=== PATIENT | male | born 1965 ===

== ENCOUNTER 2020-12-30 15:46 | Observation (INO) | payer BC, SELFPAY ==
[2020-12-30] VITALS (42 sets, daily range): BP systolic 123–138; BP diastolic 70–85; PULSE 55–67; RESP 16–18; TEMP 36.7–36.8; O2SAT 91–99
--- NOTE | 2020-12-30 | DI.CT_ITS ---
Exam(s) CT ABDOMEN PELVIS W EXAM: CT ABDOMEN PELVIS W CLINICAL HISTORY: abd pain. TECHNIQUE: Imaging Protocol: Axial computed tomography images with coronal and sagittal reformatted images were created and reviewed CONTRAST MATERIAL: Intravenous: Omnipaque 100cc Oral: None COMPARISON: No exams were available for comparison FINDINGS: VISUALIZED LUNG BASES: No nodules nor pleural effusions evident. ABDOMEN: There is no ascites. LIVER: There are no focal hepatic lesions evident. No dilated intrahepatic ducts. GALLBLADDER/BILIARY: No obvious gallbladder pathology. CBD is not dilated. PANCREAS: No evidence of pancreatic mass nor dilatation of the pancreatic duct. SPLEEN: Spleen is not enlarged. No obvious intrasplenic lesions. Splenic and portal veins are paten t. ADRENALS: There are no significant adrenal masses. KIDNEYS:There is an exophytic benign 2 cm diameter cyst off the lateral cortex of the left kidney. N o other focal renal findings. No hydronephrosis . ABDOMINAL AORTA: Abdominal aorta is not enlarged. LYMPH NODES:There is no retroperitineal nor paraaortic adenopathy. ABDOMINAL WALL: No evidence of significant anterior abdominal wall hernia. PELVIS: GI: No evidence of appendicitis.There diverticuli in left side of the colon. There is evidence of ac efrem diverticulitis in the lower descending colon-upper sigmoid. There is surrounding streaking but n o evidence of abscess at this time. LYMPH NODES: There is no intrapelvic nor inguinal adenopathy. REPRODUCTIVE: Prostate gland size normal. URINARY BLADDER: No calculi nor obvious masses evident OSSEOUS: No significant osseous lesions. Chronic degenerative disc disease at L4-5 and L5-S1 levels IMPRESSION: 1. The main finding here is diverticulitis in the descending-left colon and upper sigmoid. There is no evidence of free air and no evidence of abscess. 2. Benign 2 cm cyst left kidney. No other focal renal findings. RADIATION DOSE DELIVERED: 1,036.39mGy.cm Total DLP DATA REPOSITORY: All CT scans at this facility are submitted to the National Radiology Data Registry (NRDR) Dose Index Registry (DIR) with the [employer] (ACR). RADIATION OPTIMIZATION: All CT scans at this facility use at least one of these dose optimization te chniques: automated exposure control; mA and/or kV adjustment per patient size (includes targeted exa ms where dose is matched to clinical indication); or iterative reconstruction.
[2020-12-30] MEDS: Normal Saline 1,000 ML 1000 ML IV (16:09)
[2020-12-30] MEDS: Normal Saline Flush 10 ML SYR IVP ×2 (16:10→18:47)
[2020-12-30 16:32] LABS: ALT 77 U/L (16-63); AST 42 U/L (15-37); Abs Immature Grans 0.01 10^3/uL (0.0-0.06); Absolute Basophil Count 0.03 10^3/uL (0.0-0.2); Absolute Eosinophil Count 0.18 10^3/uL (0.0-0.7); Absolute Lymphocyte Count 1.31 10^3/uL (1.2-3.4); Absolute Monocyte Count 0.58 10^3/uL (0.1-0.8); Absolute Neutrophil Count 3.78 10^3/uL (1.2-6.7); Albumin 3.8 g/dL (3.4-5.0); Alkaline Phosphatase 55 U/L (46-116); Anion Gap 9.1 mmol/L (3-11); BUN 13 mg/dL (7-18); Basophils % 0.5; Bilirubin, Total 0.3 mg/dL (0.2-1.0); CO2 24.9 mmol/L (21.0-32.0); CREATININE 0.9 mg/dL (0.70-1.30); Chloride 106 mmol/L (98-107); Eosinophils % 3.1; Glucose 96 mg/dL (74-106); HCT 43.6 % (40.0-50.0); HGB 14.8 g/dL (13.5-17.5); Immature Grans % 0.2; Lymphocytes % 22.2; MCH 30.6 pg (27.0-33.0); MCHC 33.9 % (32.0-36.0); MCV 90.1 fL (80-95); MPV 10.2 fL (8.0-11.0); Monocytes % 9.8; Neutrophils % 64.2; Nucleated RBC 0 %; Platelet Count 299 10^3/uL (130-400); Potassium 4.4 mmol/L (3.5-5.1); RBC 4.84 10^6/uL (4.36-5.78); RDW 12.3 % (11.8-14.1); RDW-SD 40.8 fL; Sodium 140 mmol/L (136-145); Total Protein 7.2 g/dL (6.4-8.2); WBC 5.89 10^3/uL (4.4-10.8)
[2020-12-30 16:35] LABS: Lipase 148 U/L (73-393)
[2020-12-30] MEDS: Ondansetron 4 MG/2 ML VIAL IVP (16:49)
[2020-12-30 16:55] LABS: Bilirubin Negative (Negative); Blood Negative (Negative); Clarity Clear (Clear); Glucose Negative (Negative); Ketones Negative (Negative); Leukocyte Esterase Trace (Negative); Nitrite Negative (Negative); Specific Gravity >= 1.030 (1.005-1.025); Urobilinogen 0.2 EU/dL (Up TO 0.2)
[2020-12-30 17:01] LABS: Bacteria Negative HPF (Negative); C & S Indicated? Yes; Casts Negative LPF (Negative); Crystals Negative HPF (Negative); Epithelial Cells Negative HPF (Negative); Mucus Negative (Negative); Other Cells Negative (Negative); RBC Negative HPF (0-2); WBC Negative HPF (0-5)
--- NOTE | 2020-12-30 18:02 | NUR.NOTE ---
Resting quietly on cart. Awaiting CT scan. Warm blanket provided. Lights dimmed for comfort. Call light in reach. Nursing Note:
--- NOTE | 2020-12-30 18:38 | NUR.NOTE ---
Returns from radiology; gait steady. Voids without difficulty. Call light in reach.Nursing Note:
[2020-12-30] MEDS: Omnipaque 350 MG/ML 100 ML BTL IV (18:46)
--- NOTE | 2020-12-30 18:51 | DI.VRAD_ITS ---
PROCEDURE INFORMATION: Exam: CT Abdomen And Pelvis With Contrast Exam date and time: 12/30/2020 4:02 PM Age: 55 years old Clinical indication: Abdominal pain TECHNIQUE: Imaging protocol: Computed tomography of the abdomen and pelvis with contrast. Radiation optimization: All CT scans at this facility use at least one of these dose optimization techniques: automated exposure control; mA and/or kV adjustment per patient size (includes targeted exams where dose is matched to clinical indication); or iterative reconstruction. Contrast material: OMNIPAQUE 350; Contrast volume: 100 ml; Contrast route: INTRAVENOUS (IV); COMPARISON: No relevant prior studies available. FINDINGS: Lungs: No acute infiltrate in either lung base. Bibasilar areas of linear parenchymal scarring or subsegmental collapse / atelectasis. Liver: Normal. No mass. Gallbladder and bile ducts: Normal. No calcified stones. No ductal dilation. Pancreas: Normal. No ductal dilation. Spleen: Normal. No splenomegaly. Adrenal glands: Normal. No mass. Kidneys and ureters: Posterolateral left renal cortical cyst. A few hypodensities within the renal cortex bilaterally which are too small to definitively characterize. No hydronephrosis or perinephric fluid. Stomach and bowel: Mural thickening of the mid and lower colon with associated scattered diverticula and mild infiltration / stranding of the pericolonic fat (coronal images 36-46 consistent with acute diverticulitis. No associated abscess or perforation. Appendix: Normal appendix. Intraperitoneal space: No intraperitoneal free air. Trace free fluid in the left paracolic gutter. No intraperitoneal free air. Vasculature: Unremarkable. No abdominal aortic aneurysm. Lymph nodes: Unremarkable. No enlarged lymph nodes. Urinary bladder: Unremarkable as visualized. Reproductive: Unremarkable as visualized. Bones/joints: Unremarkable. No acute fracture. Soft tissues: Unremarkable. IMPRESSION: Acute diverticulitis of the mid and lower descending colon. No associated abscess or perforation. Dictated and Authenticated by: Carlos Nolan MD. Ordering:ARLENE Grove MD
--- NOTE | 2020-12-30 20:24 | DI.CT_ITS ---
Exam(s) CT ABDOMEN PELVIS WO EXAM: CT ABDOMEN PELVIS WO CLINICAL HISTORY: abd pain. TECHNIQUE: Imaging Protocol: Axial computed tomography images with coronal and sagittal reformatted images were created and reviewed CONTRAST MATERIAL: Intravenous: none Oral: Yes COMPARISON: CT CT ABDOMEN PELVIS W from 12/30/2020 FINDINGS: The study appears to been repeated with oral contrast administration. VISUALIZED LUNG BASES: No nodules nor pleural effusions evident. ABDOMEN: There is no ascites. LIVER: There are no obvious focal hepatic lesions evident of this noninfused study. GALLBLADDER/BILIARY: No obvious gallbladder pathology. CBD is not dilated. PANCREAS: No evidence of pancreatic mass nor dilatation of the pancreatic duct. SPLEEN: Spleen is not enlarged. No obvious intrasplenic lesions. ADRENALS: There are no significant adrenal masses. KIDNEYS:2 cm exophytic cyst seen off the lateral cortex of the left kidney again noted. No solid mario al masses. No calculi nor hydronephrosis. . ABDOMINAL AORTA: Abdominal aorta is not enlarged. LYMPH NODES: There is no retroperitoneal nor paraaortic adenopathy. ABDOMINAL WALL: No evidence of significant anterior abdominal wall hernia. GI: Diverticulitis of the descending-left colon and upper sigmoid again noted, unchanged. No abscess at this time. PELVIS: LYMPH NODES: There is no intrapelvic nor inguinal adenopathy. GI: No evidence of appendicitis.Diverticulitis as described above. URINARY BLADDER: Presently filled with contrast from prior contrast infused CT scan REPRODUCTIVE: Prostate not enlarged. OSSEOUS: No significant osseous lesions. IMPRESSION: 1. Diverticulitis of the descending-left and contiguous upper sigmoid colon. No abscess evident at t his time. 2. Benign 2 cm cyst exophytic off the lateral cortex left kidney. 3. No air-gas in the urinary bladder and no evidence of abscess in the liver. RADIATION DOSE DELIVERED: 1,175.11mGy.cm Total DLP DATA REPOSITORY: All CT scans at this facility are submitted to the National Radiology Data Registry (NRDR) Dose Index Registry (DIR) with the [employer] (ACR). RADIATION OPTIMIZATION: All CT scans at this facility use at least one of these dose optimization te chniques: automated exposure control; mA and/or kV adjustment per patient size (includes targeted exa ms where dose is matched to clinical indication); or iterative reconstruction.
--- NOTE | 2020-12-30 20:55 | W.ED.GENAD ---
Discharge Plan Disposition Patient Disposition: [facility] INPATIENT Condition: Stable Discharge Details Chief Complaint: Abd Prob Clinical Impression: Diverticulitis Primary Care Provider: MarixaLocal ED Provider: Maine Gonzalez Home Meds and New Rx's Prescriptions: No Action metronidazole 500 mg Tablet 500 mg PO TID RF: 0 ciprofloxacin HCl [Cipro] 500 mg Tablet 500 mg PO BID RF: 0 allopurinol 100 mg Tablet 200 mg PO DAILY RF: 0 Medical Decision Making complete 8 days of cipro/flagyl for presumptive diverticulitis. will check labs and ct scan IV established, 1 liter of NS and zofran 4 mg IVP with some improvement in nausea CT results discussed with Dr Iyer who recommends oral contrast ct abd/pelvis Medical Records Medical records reviewed: Yes I reviewed the patient's medical records. Imaging Data Radiologic Study: Imaging: CT Scan (abd/pelvis IV contrast only) Radiologist's impression: Patient Name: Suma Gutierrez #: [id number]: ER Ordering Provider: : REG ER Primary Care Provider: Quinton CalvinDate of Exam: 12/30/20Sex: M : 1965Age: 55 Exam(s) PROCEDURE INFORMATION: Exam: CT Abdomen And Pelvis With Contrast Exam date and time: 12/30/2020 4:02 PM Age: 55 years old Clinical indication: Abdominal pain TECHNIQUE: Imaging protocol: Computed tomography of the abdomen and pelvis with contrast. Radiation optimization: All CT scans at this facility use at least one of these dose optimization techniques: automated exposure control; mA and/or kV adjustment per patient size (includes targeted exams where dose is matched to clinical indication); or iterative reconstruction. Contrast material: OMNIPAQUE 350; Contrast volume: 100 ml; Contrast route: INTRAVENOUS (IV); COMPARISON: No relevant prior studies available. FINDINGS: Lungs: No acute infiltrate in either lung base. Bibasilar areas of linear parenchymal scarring or subsegmental collapse / atelectasis. Liver: Normal. No mass. Gallbladder and bile ducts: Normal. No calcified stones. No ductal dilation. Pancreas: Normal. No ductal dilation. Spleen: Normal. No splenomegaly. Adrenal glands: Normal. No mass. Kidneys and ureters: Posterolateral left renal cortical cyst. A few hypodensities within the renal cortex bilaterally which are too small to definitively characterize. No hydronephrosis or perinephric fluid. Stomach and bowel: Mural thickening of the mid and lower colon with associated scattered diverticula and mild infiltration / stranding of the pericolonic fat (coronal images 36-46 consistent with acute diverticulitis. No associated abscess or perforation. Appendix: Normal appendix. Intraperitoneal space: No intraperitoneal free air. Trace free fluid in the left paracolic gutter. No intraperitoneal free air. Vasculature: Unremarkable. No abdominal aortic aneurysm. Lymph nodes: Unremarkable. No enlarged lymph nodes. Urinary bladder: Unremarkable as visualized. Reproductive: Unremarkable as visualized. Bones/joints: Unremarkable. No acute fracture. Soft tissues: Unremarkable. IMPRESSION: Acute diverticulitis of the mid and lower descending colon. No associated abscess or perforation. Dictated and Authenticated by: Carlos Nolan MD. Ordering:ARLENE Grove MD Lab Data Lab results reviewed: Yes I reviewed the patient's lab results. Labs: Laboratory Results - last 24 hr 12/30/20 12/30/20 12/30/20 15:55 16:05 16:05 WBC 5.89 RBC 4.84 Hgb 14.8 Hct 43.6 MCV 90.1 MCH 30.6 MCHC 33.9 RDW 12.3 Plt Count 299 MPV 10.2 Immature Gran % 0.2 Neutrophils % 64.2 Lymphocytes % 22.2 Monocytes % 9.8 Eosinophils % 3.1 Basophils % 0.5 Nucleated RBC % 0 Absolute Neutrophils 3.78 Absolute Lymphocytes 1.31 Absolute Monocytes 0.58 Absolute Eosinophils 0.18 Absolute Basophils 0.03 Sodium 140 Potassium 4.4 Chloride 106 Carbon Dioxide 24.9 Anion Gap 9.1 BUN 13 Creatinine 0.9 Estimated GFR/1.73 m2 >= 60.00 Glucose 96 Calcium 9.0 Total Bilirubin 0.3 AST 42 H ALT 77 H Alkaline Phosphatase 55 Total Protein 7.2 Albumin 3.8 Lipase Urine Color Yellow Urine Clarity Clear Urine pH 5.0 Ur Specific [place] >= 1.030 H Urine Protein Negative Urine Ketones Negative Urine Blood Negative Urine Nitrite Negative Urine Bilirubin Negative Urine Urobilinogen 0.2 Ur Leukocyte Esterase Trace H Urine RBC Negative Urine WBC Negative Ur Epithelial Cells Negative Urine Crystals Negative Urine Bacteria Negative Urine Casts Negative Urine Mucus Negative Urine Other Negative Ur Culture Indicated? Yes Urine Glucose Negative 12/30/20 16:05 WBC RBC Hgb Hct MCV MCH MCHC RDW Plt Count MPV Immature Gran % Neutrophils % Lymphocytes % Monocytes % Eosinophils % Basophils % Nucleated RBC % Absolute Neutrophils Absolute Lymphocytes Absolute Monocytes Absolute Eosinophils Absolute Basophils Sodium Potassium Chloride Carbon Dioxide Anion Gap BUN Creatinine Estimated GFR/1.73 m2 Glucose Calcium Total Bilirubin AST ALT Alkaline Phosphatase Total Protein Albumin Lipase 148 Urine Color Urine Clarity Urine pH Ur Specific [place] Urine Protein Urine Ketones Urine Blood Urine Nitrite Urine Bilirubin Urine Urobilinogen Ur Leukocyte Esterase Urine RBC Urine WBC Ur Epithelial Cells Urine Crystals Urine Bacteria Urine Casts Urine Mucus Urine Other Ur Culture Indicated? Urine Glucose HPI General Mode of arrival: ambulatory. Date/Time Provider Initiated Documentation: 12/30/20 15:58. Limitations to Documentation: no limitations. Information obtained by: patient. HPI Narrative: patient presents for ongoing mid to left lower abdominal pain. has been tolerating po and has been afebrile, was started on 10 day course of cipro/flagyl last tuesday which has not improved his pain. states moving bowels normally and voiding without difficulty Related Data Home Medications Medication Instructions Recorded Confirmed allopurinol 200 mg PO DAILY 12/30/20 12/30/20 ciprofloxacin HCl [Cipro] 500 mg PO BID 12/30/20 12/30/20 metronidazole 500 mg PO TID 12/30/20 12/30/20 Allergies Allergy/AdvReac Type Severity Reaction Status Date / Time No Known Allergies Allergy Unverified 12/30/20 16:26 General Stated Complaint: Abd Prob STEVE: 3 Review of Systems Constitutional Constitutional: Denies fever(s) and Reports poor appetite ENT Ears, Nose, Mouth, and Throat: Denies vertigo and Denies dizziness Cardiovascular Cardiovascular: Denies chest pain and Denies dyspnea Respiratory Respiratory: Denies cough and Denies dyspnea Gastrointestinal Gastrointestinal: Reports abdominal pain, Denies hematochezia, Denies constipation, Reports nausea and Denies vomiting Genitourinary Genitourinary: Denies dysuria Musculoskeletal Musculoskeletal: Denies back pain Integumentary/Breasts Skin/Breast: Denies rash Neurologic Neurologic: Denies vertigo and Denies dizziness PFSH Social History Smoking/Tobacco Use Status: Current every day Tobacco Type: cigars Smoking risk assessment performed?: Yes Alcohol Intake: current Alcohol Intake frequency: 0-2 drinks per day Alcohol type: beer and wine Drug use: Never Substance use type: does not use Do you feel safe at home: Yes Do you feel safe in your relationship?: Yes Exam Const General: cooperative, healthy appearing and no acute distress Nutritional Appearance: average body habitus Orientation: alert, awake and oriented x3 HENMT Head: normal to inspection Mouth: oral mucosae normal Resp Effort & Inspection: normal respiratory effort Auscultation: clear to auscultation bilaterally Cardio Rate: regular rate Rhythm: regular rhythm GI Inspection: distended Palpation: no masses, tender in the LLQ and periumbilically; with no rebound tenderness and No ascites Auscultation: normal bowel sounds Skin General skin exam: no rashes or lesions noted Neuro General: patient alert, patient awake and patient oriented x3 Cognition: normal cognition Speech: speech normal Course Vital Signs Vital signs: Vital Signs Temperature 36.8 C 12/30/20 15:50 Pulse 67 12/30/20 15:50 Blood Pressure 132/81 12/30/20 15:50 Pulse Oximetry 98 12/30/20 15:50 Temperature 36.7 C 12/30/20 19:39 Temperature Source Temporal Artery Scan 12/30/20 19:39 Pulse 61 12/30/20 20:01 Respiratory Rate 16 12/30/20 19:39 Respiratory Effort Non-Labored 12/30/20 15:53 Blood Pressure 138/85 12/30/20 20:01 Blood Pressure Mean 97 12/30/20 20:01 Blood Pressure Position Sitting 12/30/20 15:50 Pulse Oximetry 96 12/30/20 20:01 Oxygen Delivery Method Room Air 12/30/20 19:39 Oxygen Flow Rate 0 12/30/20 19:39 Pain Level 4 12/30/20 19:39 Lab/Test Results Lab/Test Results: 12/30/20 15:55 Urine - Reflex from Ua Urine Culture - Pending Laboratory Tests Range/Units 12/30/20 12/30/20 12/30/20 15:55 16:05 16:05 WBC (4.4-10.8) 10^3/uL 5.89 RBC (4.36-5.78) 10^6/uL 4.84 Hgb (13.5-17.5) g/dL 14.8 Hct (40.0-50.0) % 43.6 MCV (80-95) fL 90.1 MCH (27.0-33.0) pg 30.6 MCHC (32.0-36.0) % 33.9 RDW (11.8-14.1) % 12.3 Plt Count (130-400) 10^3/uL 299 MPV (8.0-11.0) fL 10.2 Immature Gran % 0.2 Neutrophils % 64.2 Lymphocytes % 22.2 Monocytes % 9.8 Eosinophils % 3.1 Basophils % 0.5 Nucleated RBC % % 0 Absolute Neutrophils (1.2-6.7) 10^3/uL 3.78 Absolute Lymphocytes (1.2-3.4) 10^3/uL 1.31 Absolute Monocytes (0.1-0.8) 10^3/uL 0.58 Absolute Eosinophils (0.0-0.7) 10^3/uL 0.18 Absolute Basophils (0.0-0.2) 10^3/uL 0.03 Sodium (136-145) mmol/L 140 Potassium (3.5-5.1) mmol/L 4.4 Chloride (98-107) mmol/L 106 Carbon Dioxide (21.0-32.0) mmol/L 24.9 Anion Gap (3-11) mmol/L 9.1 BUN (7-18) mg/dL 13 Creatinine (0.70-1.30) mg/dL 0.9 Estimated GFR/1.73 m2 (mL/min/1.73m2) >= 60.00 Glucose (74-106) mg/dL 96 Calcium (8.5-10.1) mg/dL 9.0 Total Bilirubin (0.2-1.0) mg/dL 0.3 AST (15-37) U/L 42 H ALT (16-63) U/L 77 H Alkaline Phosphatase (46-116) U/L 55 Total Protein (6.4-8.2) g/dL 7.2 Albumin (3.4-5.0) g/dL 3.8 Lipase (73-393) U/L Urine Color (Yellow) Yellow Urine Clarity (Clear) Clear Urine pH (5-8) 5.0 Ur Specific [place] (1.005-1.025) >= 1.030 H Urine Protein (Negative) mg/dL Negative Urine Ketones (Negative) mg/dL Negative Urine Blood (Negative) Negative Urine Nitrite (Negative) Negative Urine Bilirubin (Negative) Negative Urine Urobilinogen (Up TO 0.2) EU/dL 0.2 Ur Leukocyte Esterase (Negative) Trace H Urine RBC (0-2) HPF Negative Urine WBC (0-5) HPF Negative Ur Epithelial Cells (Negative) HPF Negative Urine Crystals (Negative) HPF Negative Urine Bacteria (Negative) HPF Negative Urine Casts (Negative) LPF Negative Urine Mucus (Negative) Negative Urine Other (Negative) Negative Ur Culture Indicated? Yes Urine Glucose (Negative) mg/dL Negative Range/Units 12/30/20 16:05 WBC (4.4-10.8) 10^3/uL RBC (4.36-5.78) 10^6/uL Hgb (13.5-17.5) g/dL Hct (40.0-50.0) % MCV (80-95) fL MCH (27.0-33.0) pg MCHC (32.0-36.0) % RDW (11.8-14.1) % Plt Count (130-400) 10^3/uL MPV (8.0-11.0) fL Immature Gran % Neutrophils % Lymphocytes % Monocytes % Eosinophils % Basophils % Nucleated RBC % % Absolute Neutrophils (1.2-6.7) 10^3/uL Absolute Lymphocytes (1.2-3.4) 10^3/uL Absolute Monocytes (0.1-0.8) 10^3/uL Absolute Eosinophils (0.0-0.7) 10^3/uL Absolute Basophils (0.0-0.2) 10^3/uL Sodium (136-145) mmol/L Potassium (3.5-5.1) mmol/L Chloride (98-107) mmol/L Carbon Dioxide (21.0-32.0) mmol/L Anion Gap (3-11) mmol/L BUN (7-18) mg/dL Creatinine (0.70-1.30) mg/dL Estimated GFR/1.73 m2 (mL/min/1.73m2) Glucose (74-106) mg/dL Calcium (8.5-10.1) mg/dL Total Bilirubin (0.2-1.0) mg/dL AST (15-37) U/L ALT (16-63) U/L Alkaline Phosphatase (46-116) U/L Total Protein (6.4-8.2) g/dL Albumin (3.4-5.0) g/dL Lipase (73-393) U/L 148 Urine Color (Yellow) Urine Clarity (Clear) Urine pH (5-8) Ur Specific [place] (1.005-1.025) Urine Protein (Negative) mg/dL Urine Ketones (Negative) mg/dL Urine Blood (Negative) Urine Nitrite (Negative) Urine Bilirubin (Negative) Urine Urobilinogen (Up TO 0.2) EU/dL Ur Leukocyte Esterase (Negative) Urine RBC (0-2) HPF Urine WBC (0-5) HPF Ur Epithelial Cells (Negative) HPF Urine Crystals (Negative) HPF Urine Bacteria (Negative) HPF Urine Casts (Negative) LPF Urine Mucus (Negative) Urine Other (Negative) Ur Culture Indicated? Urine Glucose (Negative) mg/dL
[2020-12-30] MEDS: Omnipaque 350 MG/ML 50 ML BTL PO (21:13)
--- NOTE | 2020-12-30 21:31 | NUR.NOTE ---
Patient sitting on side of cart. Warm blankets provided. Denies needs. Awaiting CT Scan at 2215. Call light in reach. Nursing Note:
--- NOTE | 2020-12-30 22:15 | NUR.NOTE ---
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 gait steady.Nursing Note:
--- NOTE | 2020-12-30 22:29 | NUR.NOTE ---
Returns from DI. Gait steady. Voids without difficulty. Warm blankets provided. Call light in reach. Nursing Note:
--- NOTE | 2020-12-30 22:43 | DI.VRAD_ITS ---
PROCEDURE INFORMATION: Exam: CT Abdomen And Pelvis Without Contrast Exam date and time: 12/30/2020 9:11 PM Age: 55 years old Clinical indication: Other: Abd pain, oral contrast only TECHNIQUE: Imaging protocol: Computed tomography of the abdomen and pelvis without contrast. Radiation optimization: All CT scans at this facility use at least one of these dose optimization techniques: automated exposure control; mA and/or kV adjustment per patient size (includes targeted exams where dose is matched to clinical indication); or iterative reconstruction. COMPARISON: CT ABDOMEN PELVIS W 12/30/2020 6:20 PM FINDINGS: Liver: Normal. No mass. Gallbladder and bile ducts: Gallbladder is contracted. Pancreas: Normal. No ductal dilation. Spleen: Normal. No splenomegaly. Adrenal glands: Normal. No mass. Kidneys and ureters: Renal hypodensities again seen. No evidence of hydronephrosis. Stomach and bowel: Sigmoid diverticulosis noted. Some inflammation seen adjacent to the mid and distal descending colon. Findings compatible with diverticulitis. No change. Appendix: No evidence of appendicitis. Intraperitoneal space: Unremarkable. No free air. No significant fluid collection. Vasculature: Unremarkable. No abdominal aortic aneurysm. Lymph nodes: Unremarkable. No enlarged lymph nodes. Urinary bladder: Contrast seen in the bladder. Reproductive: Unremarkable as visualized. Bones/joints: Unremarkable. No acute fracture. Soft tissues: Unremarkable. IMPRESSION: Findings of diverticulitis in the descending colon similar to the recent study. Dictated and Authenticated by: Reji Kuhn MD. Ordering:ARLENE Grove MD
[2020-12-30] MEDS: PIPERACILLIN/TAZO 3.375 GM in Normal Saline 50 ML IVPB (23:22)
[2020-12-30 23:51] LABS: Source Nasal/Nares
--- NOTE | 2020-12-30 23:51 | NUR.NOTE ---
Report to KARIN Christian, Med SurgNursing Note:
[2020-12-31 00:05] VITALS: BP 135/83; PULSE 68; RESP 16; TEMP 36.6; O2SAT 98
[2020-12-31 00:19] LABS: COVID-19 PCR Negative (Negative)
[2020-12-31 00:29] VITALS: BP 135/83; PULSE 68; RESP 16; TEMP 36.6; O2SAT 98
[2020-12-31] MEDS: PIPERACILLIN/TAZO 3.375 GM in Normal Saline 50 ML IVPB ×3 (05:47→17:05)
[2020-12-31] MEDS: Normal Saline 500 ML 100 ML IV (05:48)
[2020-12-31] MEDS: Normal Saline Flush 10 ML SYR IVP ×2 (05:48→13:09)
--- NOTE | 2020-12-31 10:57 | W.PM.HP.N ---
Date of service: 12/31/20 Time of Service: 10:58 Assessment and Plan Assessment and plan (1) Diverticulitis: Status: Chronic Assessment and plan: He was admitted overnight for IV antibiotics after failed outpatient conservative medical management. He will he was on Cipro and Flagyl. He was started on Zosyn in the hospital and probably DC home on Augmentin We discussed etiology of diverticulitis. He does have a very mild case. I did stress the importance of having a follow-up colonoscopy with his PCP. And that he should follow-up with his PCP upon return to [place]. History of Present Illness Narrative: Patient is a 55-year-old male from [place] who was in his normal state of good health until last Tuesday. He started having left lower quadrant pain and fever and chills. He saw one of the local family practitioners that started him on Cipro and Flagyl. He felt better for couple days but then Tuesday evening 824 he started developing severe left lower quadrant pain that became progressive throughout the day. He contacted the PCP who advised him to go to the emergency department. He was seen in the ER and had no fever no white count. He had a noncontrasted CT which showed some concerning abnormalities in the cecum. I did have them repeat the CT with oral contrast and this does appear just to have been stool within the right side of the colon. Today he says he really is not feeling well and having pain in the left lower quadrant. However he says he is really hungry and could eat a steak. He has never had a colonoscopy before. His only surgery is a vasectomy. He has no known drug allergies. His mass past medical history is for gout and viral myocarditis in 2013. He had pretty significant heart failure with the myocarditis with an ejection fraction down to 18%. He states his ejection fraction was recovered to more normal. He is off all his medication. His last echo was in 2018 and his EF was normal at that point. He is a daily cigar smoker Review of Systems All systems reviewed & are unremarkable except as noted in HPI and below PFSH Medical History Gout Myocarditis Surgical History S/P vasectomy Social History Smoking/Tobacco Use Status: Current every day Tobacco Type: cigars Smoking risk assessment performed?: Yes Alcohol Intake: current Alcohol Intake frequency: 0-2 drinks per day Alcohol type: beer and wine Drug use: Never Substance use type: does not use Do you feel safe at home: Yes Do you feel safe in your relationship?: Yes Meds Allergies and Home Medications Allergies Allergy/AdvReac Type Severity Reaction Status Date / Time No Known Allergies Allergy Unverified 12/30/20 16:26 Home Medications Medication Instructions Recorded Confirmed Type allopurinol 200 mg PO DAILY 12/30/20 12/30/20 History ciprofloxacin HCl [Cipro] 500 mg PO BID 12/30/20 12/30/20 History metronidazole 500 mg PO TID 12/30/20 12/30/20 History Exam Const General: cooperative, healthy appearing, comfortable, no acute distress, well developed and well groomed Nutritional Appearance: average body habitus and well nourished Orientation: alert, awake and oriented x3 HENMT Head: normal to inspection, normocephalic and atraumatic Ears: hearing grossly normal bilaterally and external ears normal General nose exam: external nose normal Face and sinus: normal facial exam and sinuses nontender Mouth: oral mucosae normal, lip normal, tongue normal and moist mucous membranes Teeth and gingiva: dentition normal Eyes General: appearance normal, both eyes and all related structures Conjunctivae: conjunctivae normal Sclera: sclerae normal Pupils: PERRL Neck Neck: normal visual inspection and full ROM Chest Chest: normal inspection of the chest Resp Effort & Inspection: normal respiratory effort, able to speak in complete sentences, no cough, no nasal flaring, not tachypneic and no use of accessory muscles Auscultation: clear to auscultation bilaterally, no rales, no rhonchi and no wheezes Cardio Jugular venous pressure: no JVD Rate: regular rate Rhythm: regular rhythm GI Inspection: normal to inspection, no edema and non-distended Palpation: soft, no masses, tender in the LLQ and No ascites Auscultation: normal bowel sounds Other: No hernias. He has good bowel sounds. He has no distention or peritonitis. He has mild pain in the left lower quadrant. Also some pain over the transverse colon. No pain on the right side. Skin General skin exam: no rashes or lesions noted Trauma: no lacerations or abrasions Neuro General: patient alert, patient oriented x3, oriented, gait normal, moves all extremities, no focal motor deficits and CN's II-XI intact bilaterally Cognition: normal cognition Speech: speech normal Gait: normal gait Motor: muscle tone normal throughout Extrem General: normal to inspection, full ROM and no clubbing, cyanosis or edema Psych Appearance: grossly normal and well kempt Mental Status: mental status grossly normal Speech and Movement: speech and movement normal Affect: normal affect Results Labs Result diagrams: 12/30/20 16:05 12/30/20 16:05 Labs: Laboratory Results - last 24 hr 12/30/20 12/30/20 12/30/20 15:55 16:05 16:05 WBC 5.89 RBC 4.84 Hgb 14.8 Hct 43.6 MCV 90.1 MCH 30.6 MCHC 33.9 RDW 12.3 Plt Count 299 MPV 10.2 Immature Gran % 0.2 Neutrophils % 64.2 Lymphocytes % 22.2 Monocytes % 9.8 Eosinophils % 3.1 Basophils % 0.5 Nucleated RBC % 0 Absolute Neutrophils 3.78 Absolute Lymphocytes 1.31 Absolute Monocytes 0.58 Absolute Eosinophils 0.18 Absolute Basophils 0.03 Sodium 140 Potassium 4.4 Chloride 106 Carbon Dioxide 24.9 Anion Gap 9.1 BUN 13 Creatinine 0.9 Estimated GFR/1.73 m2 >= 60.00 Glucose 96 Calcium 9.0 Total Bilirubin 0.3 AST 42 H ALT 77 H Alkaline Phosphatase 55 Total Protein 7.2 Albumin 3.8 Lipase Urine Color Yellow Urine Clarity Clear Urine pH 5.0 Ur Specific [place] >= 1.030 H Urine Protein Negative Urine Ketones Negative Urine Blood Negative Urine Nitrite Negative Urine Bilirubin Negative Urine Urobilinogen 0.2 Ur Leukocyte Esterase Trace H Urine RBC Negative Urine WBC Negative Ur Epithelial Cells Negative Urine Crystals Negative Urine Bacteria Negative Urine Casts Negative Urine Mucus Negative Urine Other Negative Ur Culture Indicated? Yes Urine Glucose Negative COVID-19 Source SARS-CoV-2 (PCR) 12/30/20 12/30/20 16:05 23:25 WBC RBC Hgb Hct MCV MCH MCHC RDW Plt Count MPV Immature Gran % Neutrophils % Lymphocytes % Monocytes % Eosinophils % Basophils % Nucleated RBC % Absolute Neutrophils Absolute Lymphocytes Absolute Monocytes Absolute Eosinophils Absolute Basophils Sodium Potassium Chloride Carbon Dioxide Anion Gap BUN Creatinine Estimated GFR/1.73 m2 Glucose Calcium Total Bilirubin AST ALT Alkaline Phosphatase Total Protein Albumin Lipase 148 Urine Color Urine Clarity Urine pH Ur Specific [place] Urine Protein Urine Ketones Urine Blood Urine Nitrite Urine Bilirubin Urine Urobilinogen Ur Leukocyte Esterase Urine RBC Urine WBC Ur Epithelial Cells Urine Crystals Urine Bacteria Urine Casts Urine Mucus Urine Other Ur Culture Indicated? Urine Glucose COVID-19 Source Nasal/Nares SARS-CoV-2 (PCR) Negative Last Vital Signs Temp 36.6 C 12/31/20 00:29 Pulse 68 12/31/20 00:29 Resp 16 12/31/20 00:29 BP 135/83 12/31/20 00:29 Pulse Ox 98 12/31/20 00:29
--- NOTE | 2020-12-31 11:40 | PDOC.CMPRO ---
- If Service Date Differs Date of service: 12/31/20 Time of Service: 14:29 Care Management Progress Note Sanjay is preparing for discharge, and only requests support with discharge communication to his PCP in [place]. FERNANDO Jonas AA coordinates discharge information, clinicals faxed to PCP upon discharge. [facility] Lincoln Martinez MD, [facility]. F# [phone] P#[phone]
--- NOTE | 2020-12-31 14:08 | CHAPLAIN ---
I had a brief meeting with Sanjay and his visitor (perhaps his ). He said he was okay and declined for anything. I explained my role and offered support.
--- NOTE | 2020-12-31 15:19 | W.PM.PROGNOT ---
Date of Service Date of service: 12/31/20 Time of Service: 15:19 Assessment and Plan Assessment and plan (1) Diverticulitis: Status: Chronic Assessment and plan: mild diverticulitis normal WBC D/c home on Augmentin tid x 10 days Follow up with PCP once he is back in [place] Will need a colonoscopy in 6 weeks Low fiber diet x 2 weeks, then slowly increase fiber in your diet until he is on a high fiber diet Subjective Subjective Interval history since last seen: Sanjay is doing OK. He has some pain when he walks. He had a BM today which was soft. He has been able to eat without increased pain or nausea Exam Const General: cooperative, comfortable and no acute distress Orientation: alert and oriented x3 HENMT Head: normocephalic and atraumatic Resp Effort & Inspection: normal respiratory effort GI Inspection: normal to inspection Palpation: soft, no hepatosplenomegaly and nontender Objective Last Vital Signs Temp 97.9 F 12/31/20 00:29 Pulse 68 12/31/20 00:29 Resp 16 12/31/20 00:29 BP 135/83 12/31/20 00:29 Pulse Ox 98 12/31/20 00:29 Laboratory Results - last 24 hr 12/30/20 12/30/20 12/30/20 15:55 16:05 16:05 WBC 5.89 RBC 4.84 Hgb 14.8 Hct 43.6 MCV 90.1 MCH 30.6 MCHC 33.9 RDW 12.3 Plt Count 299 MPV 10.2 Immature Gran % 0.2 Neutrophils % 64.2 Lymphocytes % 22.2 Monocytes % 9.8 Eosinophils % 3.1 Basophils % 0.5 Nucleated RBC % 0 Absolute Neutrophils 3.78 Absolute Lymphocytes 1.31 Absolute Monocytes 0.58 Absolute Eosinophils 0.18 Absolute Basophils 0.03 Sodium 140 Potassium 4.4 Chloride 106 Carbon Dioxide 24.9 Anion Gap 9.1 BUN 13 Creatinine 0.9 Estimated GFR/1.73 m2 >= 60.00 Glucose 96 Calcium 9.0 Total Bilirubin 0.3 AST 42 H ALT 77 H Alkaline Phosphatase 55 Total Protein 7.2 Albumin 3.8 Lipase Urine Color Yellow Urine Clarity Clear Urine pH 5.0 Ur Specific [place] >= 1.030 H Urine Protein Negative Urine Ketones Negative Urine Blood Negative Urine Nitrite Negative Urine Bilirubin Negative Urine Urobilinogen 0.2 Ur Leukocyte Esterase Trace H Urine RBC Negative Urine WBC Negative Ur Epithelial Cells Negative Urine Crystals Negative Urine Bacteria Negative Urine Casts Negative Urine Mucus Negative Urine Other Negative Ur Culture Indicated? Yes Urine Glucose Negative COVID-19 Source SARS-CoV-2 (PCR) 12/30/20 12/30/20 16:05 23:25 WBC RBC Hgb Hct MCV MCH MCHC RDW Plt Count MPV Immature Gran % Neutrophils % Lymphocytes % Monocytes % Eosinophils % Basophils % Nucleated RBC % Absolute Neutrophils Absolute Lymphocytes Absolute Monocytes Absolute Eosinophils Absolute Basophils Sodium Potassium Chloride Carbon Dioxide Anion Gap BUN Creatinine Estimated GFR/1.73 m2 Glucose Calcium Total Bilirubin AST ALT Alkaline Phosphatase Total Protein Albumin Lipase 148 Urine Color Urine Clarity Urine pH Ur Specific [place] Urine Protein Urine Ketones Urine Blood Urine Nitrite Urine Bilirubin Urine Urobilinogen Ur Leukocyte Esterase Urine RBC Urine WBC Ur Epithelial Cells Urine Crystals Urine Bacteria Urine Casts Urine Mucus Urine Other Ur Culture Indicated? Urine Glucose COVID-19 Source Nasal/Nares SARS-CoV-2 (PCR) Negative
--- NOTE | 2020-12-31 15:25 | DSE_ITS ---
Date of service: 12/31/20 Time of Service: 15:25 DS: Diagnosis Discharge Diagnosis (1) Diverticulitis: Status: Chronic Discharge Plan Disposition Patient Disposition: HOME Condition: Stable Discharge Details Reason For Visit: Diverticulitis Admit Date/Time: 12/30/20 23:12 Admit Provider: Inge Iyer Attending Provider: Inge Iyer Primary Care Provider: ,[facility] Course Hospital Course: Mr. Gutierrez is a pleasant 55 year old male admitted with mild diverticultis. He was diagnosed with diverticulitis 1 week ago and started on Cipro and FLagyl. He was starting to feel better until last night when he had some sharp LLQ pain. He was seen in the ER. HIs CT scan showed mild diverticulitis, no abscess or perforation. HIs WBC count was normal and he was afebrile. HE was admitted on Zosyn. He has had a BM, he is tolerating a diet, he has been afebrile. He will be discharged home on Augmentin TID x 10 days. We will send him home with his records including copies of his CT scan. Recommend low fiber diet for 2 weeks then may increase the fiber in his diet slowely Recommend a colonoscopy Home Meds and New Rx's Prescriptions: New amoxicillin-pot clavulanate [Augmentin] 875-125 mg tablet 1 tab PO TID Qty: 28 RF: 0 Continued allopurinol 100 mg Tablet 200 mg PO DAILY RF: 0 Discontinued metronidazole 500 mg Tablet 500 mg PO TID RF: 0 ciprofloxacin HCl [Cipro] 500 mg Tablet 500 mg PO BID RF: 0 Discharge Instructions Instructions: Low Fiber Diet (DC), Diverticulitis Diet (DC) Additional Instructions: Activity at Home after surgery: 1. As tolerated Diet, Nutrition, & wound healin. Low fiber diet for 2 weeks then slowly increase fiber until you are on a high fiber diet Pain Medications: 1. Tylenol 650mg every 6 hours as needed and Ibuprofen 600 mg every 6 hours as needed. You may alternate between the 2 medications every 3 hours For Constipation: 1. Take Milk of Magnesia or MiraLax as needed for constipation Other: 1. You may shower daily. Do not scrub the incisions 2. Do not soak the incisions for 1 week 3. You may alternate ice and heat as needed for pain and swelling Please call our office if you develop: 1. Fevers >101.5 2. Nausea or Vomiting 3. Worsening pain If after hours please call the Hospital at and ask to speak to the on-call surgeon Activity:: Activity as Tolerated Equipment/Supplies:: No Equipment Needed Diet:: low fiber DS: Summary Time Spent with Patient providing and/or coordinating discharge services: Less than 30 minutes Specific discharge activities: getting CT scans copied onto disc, printing labs, writting notes Status at Discharge Functional status at discharge: independent ambulation Overall status at discharge: patient is back to baseline Mental Status: mental status grossly normal Speech and Movement: speech and movement normal Mood: congruent mood Affect: normal affect Exam Const General: cooperative, comfortable and no acute distress Orientation: alert and oriented x3 HENMT Head: normocephalic and atraumatic Resp Effort & Inspection: normal respiratory effort GI Inspection: normal to inspection Palpation: soft, no hepatosplenomegaly and tender in the LLQ (mild, no guarding or rebound) Psych Mental Status: mental status grossly normal Speech and Movement: speech and movement normal Mood: congruent mood Affect: normal affect DS: Data Vitals/I&O Vitals and I&O: Vital Signs Temperature 97.9 F 12/31/20 00:29 Temperature Source Temporal Artery Scan 12/30/20 19:39 Pulse 68 12/31/20 00:29 Pulse Rhythm Regular 12/31/20 11:40 Respiratory Rate 16 12/31/20 00:29 Respiratory Effort Non-Labored 12/31/20 11:40 Respiratory Depth Normal 12/31/20 11:40 Respiratory Pattern Normal 12/31/20 11:40 Blood Pressure 135/83 12/31/20 00:29 Blood Pressure Mean 88 12/30/20 23:53 Blood Pressure Position Sitting 12/30/20 15:50 Pulse Oximetry 98 12/31/20 00:29 Oxygen Delivery Method Room Air 12/31/20 00:29 Oxygen Flow Rate 0 12/31/20 00:29 Pain Level 2 12/31/20 00:29 Intake & Output 12/30/20 12/31/20 12/31/20 23:59 11:59 23:59 Intake Total 1010 / 1010 931.667 / 1761.667 830 / 1761.667 Balance 1010 / 1010 931.667 / 1761.667 830 / 1761.667 Weight 215 lb 204 lb 9.423 oz Intake: IV 1010 / 1010 101.667 / 151.667 50 / 151.667 Oral 830 / 1610 780 / 1610 Other: Urine Color Yellow Urine Appearance Clear Urine Odor None Comment unmeasured Voiding Methods Toilet # Voids 1 Data Completed and Pending Labs on day of discharge: Labs from last 24 hours 12/30/20 12/30/20 12/30/20 23:25 16:05 16:05 WBC 5.89 RBC 4.84 Hgb 14.8 Hct 43.6 MCV 90.1 MCH 30.6 MCHC 33.9 RDW 12.3 Plt Count 299 MPV 10.2 Immature Gran % 0.2 Neutrophils % 64.2 Lymphocytes % 22.2 Monocytes % 9.8 Eosinophils % 3.1 Basophils % 0.5 Nucleated RBC % 0 Absolute Neutrophils 3.78 Absolute Lymphocytes 1.31 Absolute Monocytes 0.58 Absolute Eosinophils 0.18 Absolute Basophils 0.03 Sodium Potassium Chloride Carbon Dioxide Anion Gap BUN Creatinine Estimated GFR/1.73 m2 Glucose Calcium Total Bilirubin AST ALT Alkaline Phosphatase Total Protein Albumin Lipase 148 Urine Color Urine Clarity Urine pH Ur Specific [place] Urine Protein Urine Ketones Urine Blood Urine Nitrite Urine Bilirubin Urine Urobilinogen Ur Leukocyte Esterase Urine RBC Urine WBC Ur Epithelial Cells Urine Crystals Urine Bacteria Urine Casts Urine Mucus Urine Other Ur Culture Indicated? Urine Glucose COVID-19 Source Nasal/Nares SARS-CoV-2 (PCR) Negative 12/30/20 12/30/20 16:05 15:55 WBC RBC Hgb Hct MCV MCH MCHC RDW Plt Count MPV Immature Gran % Neutrophils % Lymphocytes % Monocytes % Eosinophils % Basophils % Nucleated RBC % Absolute Neutrophils Absolute Lymphocytes Absolute Monocytes Absolute Eosinophils Absolute Basophils Sodium 140 Potassium 4.4 Chloride 106 Carbon Dioxide 24.9 Anion Gap 9.1 BUN 13 Creatinine 0.9 Estimated GFR/1.73 m2 >= 60.00 Glucose 96 Calcium 9.0 Total Bilirubin 0.3 AST 42 H ALT 77 H Alkaline Phosphatase 55 Total Protein 7.2 Albumin 3.8 Lipase Urine Color Yellow Urine Clarity Clear Urine pH 5.0 Ur Specific [place] >= 1.030 H Urine Protein Negative Urine Ketones Negative Urine Blood Negative Urine Nitrite Negative Urine Bilirubin Negative Urine Urobilinogen 0.2 Ur Leukocyte Esterase Trace H Urine RBC Negative Urine WBC Negative Ur Epithelial Cells Negative Urine Crystals Negative Urine Bacteria Negative Urine Casts Negative Urine Mucus Negative Urine Other Negative Ur Culture Indicated? Yes Urine Glucose Negative COVID-19 Source SARS-CoV-2 (PCR) 12/30/20 15:55 Urine - Reflex from Urine Culture - Pending Preliminary micro results at discharge 12/30/20 15:55 Urine Culture - Pending Urine - Reflex from [facility] Medical History Gout Myocarditis Surgical History S/P vasectomy Social History Smoking/Tobacco Use Status: Current every day Tobacco Type: cigars Smoking risk assessment performed?: Yes Alcohol Intake: current Alcohol Intake frequency: 0-2 drinks per day Alcohol type: beer and wine Drug use: Never Substance use type: does not use Do you feel safe at home: Yes Do you feel safe in your relationship?: Yes
== END 2020-12-31 18:27 | disposition home or self-care (01) ==
LOC: ER 23:53 → MS 12-31 00:04
PROVIDERS: Admitting Provider Surgery; Emergency Provider Nurse Practitioner Acute Care; Visit Provider Surgery
DX: K57.32 Diverticulitis of large intestine without perforation or abscess without bleeding (principal); F17.290 Nicotine dependence, other tobacco product, uncomplicated; M10.9 Gout, unspecified; Z79.899 Other long term (current) drug therapy; Z20.822 Contact with and (suspected) exposure to COVID-19
CPT/HCPCS: 80053; 83690; 87635; 96361; 96365; 96375; 99285; 74176; 74177; 81003; 81015; 85025; 87086; 99284; J2405; J2543; J3490; Q9967